=== PATIENT | female | born 1995 | race American Indian/Alaskan Native ===

== ENCOUNTER 2022-10-20 14:24 | Emergency (ER) | payer MEDICAID, SELFPAY ==
[2022-10-20 14:29] VITALS: BP 129/76; PULSE 74; RESP 16; TEMP 37.2; O2SAT 99; BMI 18.8
--- NOTE | 2022-10-20 14:37 | ED.DENTAL ---
HPI - Dental/Oral General Chief complaint: Dental/Oral Stated complaint: Ear Infection and Tooth Abscess Time Seen by Provider: 10/20/22 14:28 Source: patient Mode of arrival: Ambulatory History of Present Illness HPI Narrative: 27-year-old female smoker with history of right lower dental problems for many months presents with a chief complaint of some swelling of her right lower jaw that has been present for quite some time and right ear pain. She states that she has had no runny nose or fever. She denies any sore throat or cough. She denies nausea, vomiting or diarrhea. She has an extensive list of severe allergies to nearly all antibiotics. She states that she went to [facility] at the [facility] 7 days ago and was diagnosed with a right ear infection and was placed on clindamycin and is taking her last dose. She is looking for a dentist to help with her ongoing dental infections. She denies any drainage. Related Data Home Medications Medication Instructions Recorded Confirmed vitamin-ferrous fumarate 1 cap PO HS ##0 03/18/17 65 mg iron-folic acid 1 mg capsule (Mynatal) acetaminophen 300 mg-codeine 30 mg 1 tab PO ##0 05/06/17 tablet cephalexin 500 mg capsule (Keflex) 500 mg PO ##0 05/06/17 Previous Rx's Medication Instructions Recorded ondansetron 4 mg disintegrating 4 mg sublingual Q6HP PRN ##10 05/01/17 tablet (Zofran ODT) hydrocodone 5 mg-acetaminophen 300 1 tab PO Q6HP PRN #20 tabs 05/06/17 mg tablet (Vicodin) hydrocodone 5 mg-acetaminophen 325 1 tab PO Q4-6H PRN pain #10 tabs 10/20/22 mg tablet levofloxacin 750 mg tablet 750 mg PO DAILY 7 days #7 tabs 10/20/22 metronidazole 500 mg tablet 500 mg PO Q8H 7 days #21 tabs 10/20/22 Allergies Allergy/AdvReac Type Severity Reaction Status Date / Time codeine [CODEINE] Allergy Unknown Unverified 09/03/17 12:36 ibuprofen [IBUPROFEN] Allergy Unknown Unverified 09/03/17 12:36 Penicillins [PENICILLINS] Allergy Unknown Unverified 09/03/17 12:36 Sulfa (Sulfonamide Allergy Unknown Unverified 09/03/17 12:36 Antibiotics) [SULFA (SULFONAMIDE ANTIBIOTICS)] ALL ALLERGY MEDICINES Allergy Unknown Uncoded 09/03/17 12:36 ALL COLD MEDICATIONS Allergy Unknown Uncoded 09/03/17 12:36 sleeping pills Allergy Unknown Uncoded 09/03/17 12:36 Review of Systems Review of Systems Narrative: GENERAL: Denies chills, fatigue, malaise, fever, sweats. HEENT: see HPI RESPIRATORY: Denies dyspnea, cough, wheezing, hemoptysis, sputum. CARDIOVASCULAR: Denies chest pain, palpitations, orthopnea, edema, GASTROINTESTINAL: Denies nausea, vomiting, abdominal pain, diarrhea, constipation, melena. : Denies dysuria, frequency, incontinence, hematuria, urinary retention. MUSCULOSKELETAL: denies weakness, joint pain, or bony pain SKIN: Denies rash, skin lesions, or other NEUROLOGIC: Denies weakness, headache, numbness, change in speech, confusion, seizures, incoordination. PSYCHIATRIC: No concerning psychosocial issues. 12 point review of systems is negative except for those stated above Patient History Social History Smoking Status: Current every day smoker Smoking Status: Current every day smoker Substance Use Type: does not use Exam Narrative Exam Narrative: GENERAL: [27] year old patient appears stated age. Well-developed patient, in mild distress. HEAD: Atraumatic. Normocephalic. EYES: Pupils equal round and reactive. Extraocular motions intact. No scleral icterus. No injection or drainage. ENT: Nose without bleeding, purulent drainage. Throat without erythema, tonsillar hypertrophy or exudate. Airway patent. right tympanic membrane is partially obscured by cerumen but visual portion is only slightly erythematous, no bulging or opacification. odontogenic exam nose widespread poor dentition, right lower molar and premolar dental caries. minimal swelling, no fluctuance or erythema, no obviously drainable abscess NECK: Trachea midline. Non tender CARDIOVASCULAR: Regular rate and rhythm without murmurs, gallops, or rubs. RESPIRATORY: Clear to auscultation. Breath sounds equal bilaterally. No wheezes, rales, or rhonchi. GASTROINTESTINAL: Abdomen soft, non-tender, nondistended. EXTREMITIES: No edema or joint tenderness. BACK: Nontender without deformity or crepitance. No flank tenderness. NEURO: AOx3. SKIN: No rash or erythema of visible areas Initial Vital Signs Initial Vital Signs: Vital Signs Temperature 98.9 F 10/20/22 14:29 Pulse Rate 74 10/20/22 14:29 Respiratory Rate 16 10/20/22 14:29 Blood Pressure 129/76 10/20/22 14:29 Pulse Oximetry 99 10/20/22 14:29 Oxygen Delivery Method Room Air 10/20/22 14:29 Course Vital Signs Vital signs: Vital Signs - 8 hr 10/20/22 14:29 Temperature 98.9 F Pulse Rate 74 Respiratory Rate 16 Blood Pressure 129/76 Pulse Oximetry 99 Oxygen Delivery Method Room Air MDM - Dental/Oral MDM Narrative Medical decision making narrative: [27] year old patient presents with right ear pain, right lower jaw pain, swelling and known dental infection Multiple etiologies for patient's symptoms considered including, but not limited to: [ dental abscess versus dental caries versus otitis media versus otitis externa versus other] Prior Charts reviewed in our EMR Primary Historian: patient patient with right ear pain and right lower jaw dental pain and swelling presents with chief complaint of ongoing symptoms despite being on clindamycin for the past week. She is nontoxic, no signs of sepsis, no difficulty breathing and guarding her airway without difficulty. Her right tympanic membrane is slightly erythematous but not bulging and not opacified, it is unclear if there is still ongoing infection at this location. There is no obviously drainable abscess adjacent to her painful teeth. Given her significant allergies and lack of improvement on clindamycin we discussed other options and in the end I sent prescriptions for Levaquin and Flagyl as well as a few hydrocodone to her pharmacy of choice. We discussed return precautions including systemic complaints such as shaking chills, persistent vomiting, difficulty swallowing or breathing and other concerning symptoms Findings and discharge diagnosis discussed with patient/family followed by verbalization of understanding Return precautions discussed with patient/family whom verbalize understanding of diagnosis and plan Discharge Plan Departure Patient Disposition: Home Clinical Impression: Acute otalgia, Abscess, dental Instructions: Tooth Abscess Activity Restrictions/Additional Instructions: *You have been diagnosed with [ dental infection and ear pain ] *What to do: *Please continue to take your regular medications as directed. [x ] New medication prescriptions sent to your pharmacy: [ [facility]] [ ] New medication written as a paper prescription [ ] No new medications given *Please follow up with your primary care provider in 2-3 days, call for an appointment. Let them know you were seen in the Emergency Department and that we ask that you be seen in follow up. We will electronically transmit a record of today's note if your PCP is in our system *If you do not have a primary care provider please contact the [facility] Resource line at [phone]. They will ask some questions about your medical history and help get you set up with a doctor in the community. *Return to Emergency Department if you should have any new, worsening or concerning symptoms, such as [fever greater than 101 F, shaking chills, worsening pain, persistent vomiting or other bothersome symptoms] You have been prescribed a short course of narcotic medications. These are potentially dangerous and addictive medications that should be used carefully. While on these medications you cannot drive or operate heavy machinery. Additionally, you cannot sign legal documents or perform any duties such as this. Many people get constipated on narcotic medications so it would be advisable to discuss stool softeners with the pharmacist when you pickling solution maker your prescription. Please understand that we cannot provide further refills of narcotics or controlled substances through the ED and your pain management will need to be through your Primary Care Provider Prescriptions: New levofloxacin 750 mg tablet 750 mg PO DAILY 7 Days Qty: 7 0RF metronidazole 500 mg tablet 500 mg PO Q8H 7 Days Qty: 21 0RF hydrocodone-acetaminophen 5-325 mg tablet 1 tab PO Q4-6H PRN (Reason: pain) Qty: 10 0RF No Action vit-iron fum-folic ac [Mynatal] 1 EACH capsule 1 cap PO HS Qty: 0 ondansetron [Zofran ODT] 4 MG tablet,disintegrating 4 mg Sublingual Q6HP PRNQty: 10 0RF acetaminophen-codeine 30 MG/300 MG tablet 1 tab PO Qty: 0 cephalexin [Keflex] 500 MG capsule 500 mg PO Qty: 0 hydrocodone-acetaminophen [Vicodin] 5 MG/300 MG tablet 1 tab PO Q6HP PRNQty: 20 0RF Referrals: Arlen Chapin, IRVIN, EQUIPMENT WASHER, SHIPPING AND RECEIVING CLERK-C [Family Provider] - Stand Alone Forms: Patient Portal/API
== END 2022-10-20 15:02 | disposition home or self-care (01) ==
PROVIDERS: Emergency Provider Emergency Medicine; Family Provider Nurse Practitioner
DX: K04.7 Periapical abscess without sinus (principal); H92.01 Otalgia, right ear
CPT/HCPCS: 99281

== ENCOUNTER 2022-11-01 03:54 | Emergency (ER) | payer MEDICAID, SELFPAY ==
[2022-11-01 04:01] VITALS: BP 107/59; PULSE 73; RESP 16; TEMP 36.2; O2SAT 100; BMI 20.4
--- NOTE | 2022-11-01 04:03 | ED_ITS ---
HPI - Abdominal Pain General Chief Complaint: Abdominal Pain Stated Complaint: abd pain Time Seen by Provider: 11/01/22 04:00 Source: patient Mode of arrival: Ambulatory Limitations: no limitations History of Present Illness HPI narrative: This is a 27-year-old female with no reported medical issues, patient presents with complaint of right-sided abdominal for the past few days. Patient states it is significantly worse when she eats and then will sort of improve. She states started in the front there is a little bit in the flank. She is noted a little bit of pressure in the lower abdomen as well. She denies fevers has felt chilled. She is had decreased appetite. She is had nausea. She is not had any vomiting. She denies diarrhea, constipation black or bloody stool. Today's dysuria, urgency or frequency. Denies vaginal bleeding or discharge. States she finished her menses about a week ago. Patient states she is had prior ovarian cyst pain feels different than that does. Patient states no daily medications. She did try hydrocodone, Tylenol and codeine earlier tonight without any improvement. Denies any surgeries besides a dental extraction. Notes she was on antibiotics for recently for a dental infection which resulted in the extraction. Does use tobacco, occasional alcohol, denies illicit. Related Data Home Medications Medication Instructions Recorded Confirmed vitamin-ferrous fumarate 1 cap PO HS ##0 03/18/17 65 mg iron-folic acid 1 mg capsule (Mynatal) acetaminophen 300 mg-codeine 30 mg 1 tab PO ##0 05/06/17 tablet cephalexin 500 mg capsule (Keflex) 500 mg PO ##0 05/06/17 Previous Rx's Medication Instructions Recorded ondansetron 4 mg disintegrating 4 mg sublingual Q6HP PRN ##10 05/01/17 tablet (Zofran ODT) hydrocodone 5 mg-acetaminophen 300 1 tab PO Q6HP PRN #20 tabs 05/06/17 mg tablet (Vicodin) hydrocodone 5 mg-acetaminophen 325 1 tab PO Q4-6H PRN pain #10 tabs 10/23/22 mg tablet ciprofloxacin HCl 500 mg tablet 500 mg PO BID #20 tabs 11/01/22 hydrocodone 5 mg-acetaminophen 325 1 tab PO Q6H PRN pain #20 tabs 11/01/22 mg tablet Allergies Allergy/AdvReac Type Severity Reaction Status Date / Time codeine [CODEINE] Allergy Unknown Unverified 09/03/17 12:36 ibuprofen [IBUPROFEN] Allergy Unknown Unverified 09/03/17 12:36 Penicillins [PENICILLINS] Allergy Unknown Unverified 09/03/17 12:36 Sulfa (Sulfonamide Allergy Unknown Unverified 09/03/17 12:36 Antibiotics) [SULFA (SULFONAMIDE ANTIBIOTICS)] ALL ALLERGY MEDICINES Allergy Unknown Uncoded 09/03/17 12:36 ALL COLD MEDICATIONS Allergy Unknown Uncoded 09/03/17 12:36 sleeping pills Allergy Unknown Uncoded 09/03/17 12:36 Review of Systems Review of Systems ROS Unobtainable: All systems reviewed & are unremarkable except as noted in HPI and below Patient History Social History Smoking Status: Current every day smoker Smoking Status: Current every day smoker Substance Use Type: does not use Exam Narrative Exam Narrative: GENERAL: Alert and oriented x three, thin female in [id number] distress. HEENT: Head normocephalic, atraumatic, EOMI, pupils reactive, face symmetric, moist mucous membranes NECK: Supple, full range of motion CARDIOVASCULAR: Regular rate and rhythm without murmurs, rubs or gallops. RESPIRATORY: Breath sounds equal bilaterally, no wheezes rales or rhonchi. ABDOMEN: Soft, right-sided tenderness particularly in the right upper quadrant but mildly lower. Normoactive bowel sounds all 4 quadrants. No guarding or rebound, rigidity, no mass, nondistended. : No CVA tenderness EXTREMITIES: Normal range of motion, no clubbing or edema. Neurovascularly intact NEUROLOGICAL: Cranial nerves II through XII grossly intact. Moving all extremities. Normal gait. SKIN: Warm, dry, no petechiae, no rashes or lesions. Initial Vital Signs Initial Vital Signs: Vital Signs Temperature 97.1 F L 11/01/22 04:01 Pulse Rate 73 11/01/22 04:01 Respiratory Rate 16 11/01/22 04:01 Blood Pressure 107/59 L 11/01/22 04:01 Pulse Oximetry 100 11/01/22 04:01 Oxygen Delivery Method Room Air 11/01/22 04:01 Course Orders Ordered: Discontinued Medications Ketorolac Tromethamine (Ketorolac 30 Mg/Ml Vial) 15 mg IV NOW ONE Stop: 11/01/22 04:19 Last Admin: 11/01/22 04:30 Dose: 15 mg Documented By: RODNEY Morphine Sulfate (Morphine 4 Mg/Ml Inj) 4 mg IV NOW ONE Stop: 11/01/22 05:50 Last Admin: 11/01/22 05:52 Dose: 4 mg Documented By: RODNEY Ondansetron HCl (Ondansetron 4 Mg/2 Ml Inj) 4 mg IV NOW ONE Stop: 11/01/22 04:19 Last Admin: 11/01/22 04:30 Dose: 4 mg Documented By: RODNEY Vital Signs Vital signs: Vital Signs - 8 hr 11/01/22 04:01 Temperature 97.1 F L Pulse Rate 73 Respiratory Rate 16 Blood Pressure 107/59 L Pulse Oximetry 100 Oxygen Delivery Method Room Air MDM - Abdominal Pain Lab Data 11/01/22 04:25 11/01/22 04:25 Labs: Lab Results 11/01/22 11/01/22 11/01/22 Range/Units 04:25 04:25 04:30 WBC 7.1 (4.5-11.0) X10^3/uL RBC 4.37 (4.0-5.2) X10^6/uL Hgb 13.5 (12.0-16.0) g/dL Hct 38.4 (36-46) % MCV 87.9 (80-100) fL MCH 30.8 (26-34) PG MCHC 35.0 (30-36) % RDW 13.1 (11.6-14.8) % Plt Count 229 (150-400) X10^3/uL Neut % (Auto) 73.5 (50-75) % Lymph % (Auto) 15.4 L (25-40) % [place] % (Auto) 8.4 (3-14) % Eos % (Auto) 1.4 L (2-4) % Baso % (Auto) 1.3 (0-2) % Neut # (Auto) 5300 (1913-6304) /uL Lymph # (Auto) 1100 (1604-7757) /uL [place] # (Auto) 600 (0-900) /uL Eos # (Auto) 100 (0-450) /uL Baso # (Auto) 100 (0-100) /uL Sodium 137 (137-145) mmol/L Potassium 3.3 L (3.4-5.1) mmol/L Chloride 104 (98-107) mmol/L Carbon Dioxide 27 (22-32) mmol/L BUN 16 (7-17) mg/dL Creatinine 0.58 (0.52-1.04) mg/dL Estimated GFR > 60 (>60) mL/min BUN/Creatinine Ratio 27.6 H (6-22) Glucose 149 H (70-100) mg/dL Calcium 8.9 (8.4-10.2) mg/dL Total Bilirubin 0.5 (0.2-1.3) mg/dL AST 19 (14-36) IU/L ALT 15 (<35) IU/L Alkaline Phosphatase 45 (38-126) U/L Total Protein 7.1 (6.3-8.2) g/dL Albumin 4.4 (3.5-5.0) g/dL Globulin 2.7 (1.7-4.1) g/dL Albumin/Globulin Ratio 1.6 (1.0-2.8) Lipase 39 (23-300) U/L Urine Color Yellow Urine Appearance Clear Urine pH 5.5 (4.5-8.0) Ur Specific Delta 1.025 (1.000-1.035) Urine Protein Negative (Negative) Urine Glucose (UA) Negative (Negative) g/dL Urine Ketones 1+ H (NEGATIVE) Urine Occult Blood Negative (Negative) Urine Nitrate Negative (Negative) Urine Bilirubin Negative (NEGATIVE) Urine Urobilinogen 0.2 (0.2) E.U./dL Ur Leukocyte Esterase Trace H (NEGATIVE) Urine RBC 0-1/hpf (0-5/HPF) Urine WBC 0-1/hpf (0-5/HPF) Ur Squamous Epith Cells 0-1 /hpf (0-5/HPF) Urine Bacteria None seen (None) Hyaline Casts 0-1/lpf (None) Urine Mucus 1+ H (Negative) Ur Culture Indicated? Specimen cultured Point of care testing: Point of Care Testing Test Results Negative Urine Dip Bedside Urine Glucose Negative Bedside Urine Bilirubin - Negative Bedside Urine Ketone + 15 Urine Specific Delta 1.030 Bedside Urine Occult Blood - Negative Bedside Urine pH 6.0 Bedside Urine Protein +/- 15 Bedside Urine Leukocytes +/- 15 Esterase Imaging Data US - abdomen: Radiologist's Impression: appendix not visualized. There is no acute changes to right upper quadrant. Right kidney no acute change. CT scan - abdomen/pelvis: Radiologist's Impression: Lung bases are clear. Liver, gallbladder, pancreas, spleen, adrenal glands and kidneys are unremarkable. New line uterus and urinary bladder are unremarkable. No convincing indications of appendicitis. Moderate retained fecal material throughout the colon. Few mildly distended loops of small bowel in the left mid abdomen. No retroperitoneal mass or lymphadenopathy. Aorta normal in caliber no acute or aggressive appearing osseous lesion. Findings maybe associated with post patient's/adynamic ileus. Mild enteritis may also be considered. MDM Narrative Medical decision making narrative: This is a 27-year-old female with 5 days of abdominal pain that has been persistent progressive she is particularly tender in the right upper quadrant. No fevers or chills decreased appetite, no vomiting. No other GI or urinary symptoms. Patient notes she is had an ovarian cyst this is feels different and her tenderness is much higher on examination. Labs show no white count, potassium 3.3 normal renal function, glucose 149 with normal LFTs and lipase. Point of care urine is negative for , positive leukocyte Estrace, no nitrites. Micro shows leukocyte esterase, no nitrates, no bacteria with some culture. Ultrasound limited right upper quadrant is negative appendix was not visualized normal right kidney. Discussed with patient, patient was quite tender more so in right upper quadrant. Possibility for pyelonephritis but patient noted that pain was much worse when she eats. This seems less likely more likely colitis, appendicitis still on differential and was not visualized on imaging. Patient still quite uncomfortable. We will give additional dose of pain medication and after discussion risks versus benefits CT abdomen pelvis. CT abdomen pelvis does not show any clear acute changes, appendicitis, kidney stone, colitis or other clear cause of pain. Patient's urine does have leukocyte esterase I would treat patient for potential pyelonephritis with her right upper/flank pain. Patient is much more tender RUQ but does have some RLQ tenderness as well. Discussed with patient other potential causes she states not sexually active currently. We discussed pelvic exam for PID although makes right upper quadrant pain less likely, patient elects to defers. Discussed other potential causes, return precautions need for follow-up. Discharge Plan Departure Patient Disposition: Home Clinical Impression: Pyelonephritis Instructions: DI for Kidney Infection Activity Restrictions/Additional Instructions: I suspect your pain is secondary to kidney infection but please follow up for additional workup if symptoms are not improving. A urine culture is pending if it shows resistance you would be contacted to change antibiotics. Please take pain medication as prescribed. This medication can make you sleepy do not drive, perform hazardous activities or make any major decisions while taking it. This medication will make you constipated please take a stool softener once to twice daily until stools are soft and regular. Take antibiotics until completely gone. Prescription sent to [facility] [place] Please return for fevers, new or worsening abdominal back or flank pain, persistent vomiting, black or bloody stools, lightheadedness or passing out or other new or concerning symptoms. Prescriptions: New ciprofloxacin HCl 500 mg tablet 500 mg PO BID Qty: 20 0RF hydrocodone-acetaminophen 5-325 mg tablet 1 tab PO Q6H PRN (Reason: pain) Qty: 20 0RF No Action vit-iron fum-folic ac [Mynatal] 1 EACH capsule 1 cap PO HS Qty: 0 ondansetron [Zofran ODT] 4 MG tablet,disintegrating 4 mg Sublingual Q6HP PRNQty: 10 0RF acetaminophen-codeine 30 MG/300 MG tablet 1 tab PO Qty: 0 cephalexin [Keflex] 500 MG capsule 500 mg PO Qty: 0 hydrocodone-acetaminophen [Vicodin] 5 MG/300 MG tablet 1 tab PO Q6HP PRNQty: 20 0RF hydrocodone-acetaminophen 5-325 mg tablet 1 tab PO Q4-6H PRN (Reason: pain) Qty: 10 0RF Referrals: Miscellaneous,Doctor, MD [Primary Care Provider] - Stand Alone Forms: Patient Portal/API
--- NOTE | 2022-11-01 04:18 | DI.US.S_ITS ---
PROCEDURE: US ABDOMEN LIMITED INDICATIONS: RUQ/RLQ pain, greatest RUQ TECHNIQUE: Real-time scanning was performed of the abdominal and retroperitoneal organs, with image documentation. COMPARISON: US, RENAL COMPLETE, 05/13/2017, 14:09. [facility], CT, CT ABDOMEN PELVIS W CON, 11/01/2022, 5:57. FINDINGS: Liver: Liver is normal in size and homogeneous in echotexture. Gallbladder: No gallstones. No gallbladder wall thickening, pericholecystic fluid or sonographic Fisher's sign. Biliary ducts: Intrahepatic bile ducts are non-dilated. Extrahepatic bile duct caliber measures 4.5 mm (Normal is 6-7 mm). Pancreas: Vivualized portions of the pancreas are sonographically normal. Right Kidney: Right kidney is normal in size measuring 11.1 cm long. No hydronephrosis or nephrolithiasis. No solid masses. Miscellaneous: Appendix is not visualized. No secondary signs for acute appendicitis. No free abdominal fluid. IMPRESSION: Normal limited abdominal ultrasound exam. No significant discrepancy with the slot shift manager radiology preliminary report. Dictated by: Maxx Talley M.D. on 11/01/2022 at 8:48 Approved by: Maxx Talley M.D. on 11/01/2022 at 8:51
[2022-11-01] MEDS: KETOROLAC 30 MG/ML VIAL 15 MG IV (04:30)
[2022-11-01] MEDS: ONDANSETRON 4 MG/2 ML INJ IV (04:30)
[2022-11-01 04:35] LABS: Add Manual Diff / Slide Review NO; Basophils Absolute Auto 100 /uL (0-100); Basophils Percent Auto 1.3 % (0-2); Eosinophils Absolute Auto 100 /uL (0-450); Eosinophils Percent Auto 1.4 % (2-4); Hematocrit 38.4 % (36-46); Hemoglobin 13.5 g/dL (12.0-16.0); Lymphocytes Absolute Auto 1100 /uL (1100-4500); Lymphocytes Percent Auto 15.4 % (25-40); Mean Corpuscular Hemoglobin 30.8 PG (26-34); Mean Corpuscular Volume 87.9 fL (80-100); Monocytes Absolute Auto 600 /uL (0-900); Monocytes Percent Auto 8.4 % (3-14); Neutrophils Absolute Auto 5300 /uL (1500-7000); Neutrophils Percent Auto 73.5 % (50-75); Platelet Count 229 X10^3/uL (150-400); Red Blood Cell Count 4.37 X10^6/uL (4.0-5.2); Red Cell Distribution Width 13.1 % (11.6-14.8); White Blood Cell Count 7.1 X10^3/uL (4.5-11.0)
[2022-11-01 04:45] LABS: Alanine Aminotransferase 15 IU/L (<35); Albumin 4.4 g/dL (3.5-5.0); Albumin Globulin Ratio 1.6 (1.0-2.8); Alkaline Phosphatase 45 U/L (38-126); Aspartate Aminotransferase 19 IU/L (14-36); BUN Creatinine Ratio 27.6 (6-22); Bilirubin Total 0.5 mg/dL (0.2-1.3); Blood Urea Nitrogen 16 mg/dL (7-17); Calcium 8.9 mg/dL (8.4-10.2); Carbon Dioxide 27 mmol/L (22-32); Chloride 104 mmol/L (98-107); Estimated Glomerular Filt Rate > 60 mL/min (>60); Globulin 2.7 g/dL (1.7-4.1); Glucose 149 mg/dL (70-100); HEMOLYSIS < 15 (0-50); Lipase 39 U/L (23-300); Potassium 3.3 mmol/L (3.4-5.1); Sodium 137 mmol/L (137-145); Total Protein 7.1 g/dL (6.3-8.2)
[2022-11-01 05:07] LABS: Appearance Urine UA CLEAR; Bilirubin Urine UA NEGATIVE (NEGATIVE); Color Urine UA YELLOW; Glucose Urine UA NEGATIVE (Negative); Ketones Urine UA 1+ (NEGATIVE); Leukocyte Esterase Urine UA TRACE (NEGATIVE); Nitrite Urine UA NEGATIVE (Negative); Occult Blood Urine UA NEGATIVE (Negative); Protein Urine UA NEGATIVE (Negative); Specific Gravity Urine UA 1.025 (1.000-1.035); Urobilinogen Urine UA 0.2 E.U./dL (0.2)
[2022-11-01 05:09] LABS: Bacteria Urine None Seen; Hyaline Casts Urine 0-1/LPF; Mucus Urine 1+ (Negative); RBC Urine 0-1/HPF (0-5/HPF); Squamous Epithelial Cell Urine 0-1 /HPF (0-5/HPF); WBC Urine 0-1/HPF (0-5/HPF); pH Urine UA 5.5 (4.5-8.0)
[2022-11-01 05:10] LABS: Culture Indicated Urine Specimen Cultured
--- NOTE | 2022-11-01 05:48 | DI.CT.S_ITS ---
PROCEDURE: CT ABDOMEN PELVIS W CON INDICATIONS: right abd pain x 5days TECHNIQUE: After the administration of IV contrast, axial sections were acquired from the lung bases to the pubic symphysis. Coronal and sagittal reformats were performed. For radiation dose reduction, the following was used: automated exposure control, adjustment of mA and/or kV according to patient size. COMPARISON: [facility], CT, ABDOMEN/PELVIS WITHOUT CONTRAS, 10/02/2016, 2:32. FINDINGS: Image quality: Excellent. Lung bases: Unremarkable. Heart: No significant findings. ABDOMEN: Liver: Unremarkable. Gallbladder: Unremarkable. Biliary ducts: Unremarkable. Pancreas: Unremarkable. Spleen: Unremarkable. Adrenal Glands: Unremarkable. Kidneys and Ureters: Unremarkable. Stomach and Bowel: Fluid-filled small bowel loops demonstrate prominent caliber measuring up to 2.7 cm in diameter. There are a few air-fluid levels in small intestine. No transitional point is identified. A large amount of stool in colon. No findings to suggest acute appendicitis. Peritoneum: No abnormal intraperitoneal fluid. No free air. Ventral Wall: No hernia. Abdominal Nodes: No retroperitoneal or mesenteric adenopathy by size criteria. Vessels: Aorta and inferior vena cava are normal in size. PELVIS: Pelvic Organs: Unremarkable. Bladder: Unremarkable. Pelvic Nodes: No enlarged lymph nodes. Miscellaneous: No inguinal hernias are seen. Bones: Unremarkable. IMPRESSION: 1. Fluid-filled small intestine demonstrates prominent caliber. The finding is nonspecific and may be secondary to gastroenteritis or ileus. No findings to suggest small bowel obstruction. 2. A large amount of stool in colon. 3. No findings to suggest acute appendicitis. No significant discrepancy with the restaurant shift leader radiology preliminary report. Dictated by: Maxx Talley M.D. on 11/01/2022 at 8:00 Approved by: Maxx Talley M.D. on 11/01/2022 at 8:05
[2022-11-01] MEDS: MORPHINE 4 MG/ML INJ IV (05:52)
[2022-11-01 06:58] VITALS: BP 103/57; PULSE 71; RESP 18; TEMP 36.8; O2SAT 100
== END 2022-11-01 06:59 | disposition home or self-care (01) ==
PROVIDERS: Emergency Provider Emergency Medicine; Family Provider Nurse Practitioner
DX: N12 Tubulo-interstitial nephritis, not specified as acute or chronic (principal); R10.9 Unspecified abdominal pain
CPT/HCPCS: 36415; 74177; 76705; 80053; 81001; 81003; 81025; 83690; 85025; 87086; 96374; 96375; 99284; J1885; J2270; J2405; Q9967

== ENCOUNTER 2023-09-23 10:21 | Emergency (ER) | payer OTHER, SELFPAY ==
[2023-09-23 10:24] VITALS: BP 105/65; PULSE 92; RESP 15; TEMP 37; O2SAT 100; BMI 18.6
--- NOTE | 2023-09-23 11:50 | ED.URI ---
HPI - URI/Sore Throat <Jaci Santos PA-C - Last Filed: 09/23/23 14:01> General Chief Complaint: Upper Respiratory Symptoms Stated Complaint: ear infection getting worse Time Seen by Provider: 09/23/23 11:26 Source: patient Mode of arrival: Ambulatory History of Present Illness HPI Narrative: 27-year-old female with no reported past medical history presents to the ED with 4 days of ear pain. Patient states that her symptoms started with right-sided ear pain and muffled hearing 4 days ago, the following day she experienced pain in the left ear as well. Patient was seen at [facility] twice for the same complaint, diagnosed with otitis externa and prescribed ofloxacin eardrops. Patient states that she has been using the eardrops for the last 3 days with no improvement. Patient also states that she developed a fever 2 days ago of 101? F. Patient is complaining of a cough, rhinorrhea, sore throat, nausea. Denies vomiting, chest pain, shortness of breath, dysuria, abdominal pain, lightheadedness, dizziness, syncope. Related Data Home Medications Medication Instructions Recorded Confirmed vitamin-ferrous fumarate 1 cap PO HS ##0 03/18/17 65 mg iron-folic acid 1 mg capsule (Mynatal) acetaminophen 300 mg-codeine 30 mg 1 tab PO ##0 05/06/17 tablet cephalexin 500 mg capsule (Keflex) 500 mg PO ##0 05/06/17 Previous Rx's Medication Instructions Recorded ondansetron 4 mg disintegrating 4 mg sublingual Q6HP PRN ##10 05/01/17 tablet (Zofran ODT) hydrocodone 5 mg-acetaminophen 300 1 tab PO Q6HP PRN #20 tabs 05/06/17 mg tablet (Vicodin) hydrocodone 5 mg-acetaminophen 325 1 tab PO Q4-6H PRN pain #10 tabs 10/23/22 mg tablet ciprofloxacin HCl 500 mg tablet 500 mg PO BID #20 tabs 11/01/22 hydrocodone 5 mg-acetaminophen 325 1 tab PO Q6H PRN pain #20 tabs 11/01/22 mg tablet Allergies Allergy/AdvReac Type Severity Reaction Status Date / Time codeine [CODEINE] Allergy Unknown Verified 09/23/23 10:24 Penicillins [PENICILLINS] Allergy Unknown Verified 09/23/23 10:24 Sulfa (Sulfonamide Allergy Unknown Verified 09/23/23 10:24 Antibiotics) [SULFA (SULFONAMIDE ANTIBIOTICS)] oxycodone Allergy Verified 09/23/23 10:24 ALL ALLERGY MEDICINES Allergy Unknown Uncoded 09/03/17 12:36 ALL COLD MEDICATIONS Allergy Unknown Uncoded 09/03/17 12:36 sleeping pills Allergy Unknown Uncoded 09/03/17 12:36 Review of Systems <Jaci Santos PA-C - Last Filed: 09/23/23 14:01> Constitutional Constitutional: Denies chills, Denies fatigue, Reports fever(s), Denies frequent falls, Denies lethargy and Denies weakness Eyes Eyes: Denies change in vision, Denies eye discharge, Denies irritation and Denies loss of vision ENT Ears, Nose, Mouth, and Throat: Denies change in voice, Denies dizziness, Reports otalgia, Reports hearing loss, Reports nasal discharge, Denies neck pain, Reports sore throat and Denies throat swelling Cardiovascular Cardiovascular: Denies chest pain, Denies irregular heart rhythm, Denies lightheadedness, Denies palpitations, Denies dyspnea, Denies dyspnea on exertion and Denies orthopnea Respiratory Respiratory: Reports cough, Denies dyspnea, Denies dyspnea on exertion and Denies wheezing Gastrointestinal Gastrointestinal: Denies abdominal pain, Denies change in bowel habits, Denies diarrhea, Denies nausea and Denies vomiting Musculoskeletal Musculoskeletal: Denies neck pain and Denies numbness Integumentary/Breasts Skin/Breast: Denies pruritus, Denies erythema, Denies rash and Denies wounds Neurologic Neurologic: Denies behavioral changes, Denies confusion, Denies dizziness, Denies frequent falls, Denies loss of vision, Denies numbness and Denies weakness Psychiatric Psychiatric: Denies anxiety, Denies behavioral changes, Denies confusion, Denies depression, Denies homicidal ideation and Denies suicidal ideation Endocrine Endocrine: Denies fatigue, Denies flushing and Denies palpitations Hematologic/Lymphatic Hematologic/Lymphatic: Denies easy bruising Allergic/Immunologic Allergic/Immunologic: Denies urticaria, Denies throat swelling and Denies wheezing Patient History <Jaci Santos PA-C - Last Filed: 09/23/23 14:01> Social History Smoking Status: Current every day smoker Smoking Status: Current every day smoker tobacco type: vaping alcohol intake frequency: holidays/special occasions only Substance Use Type: does not use Exam <Jaci Santos PA-C - Last Filed: 09/23/23 14:01> Narrative Exam Narrative: Const General:?cooperative, healthy appearing and comfortable [facility] Head:?normal to inspection Ears:?hearing grossly normal bilaterally; left ear canal appears erythematous and scaly; left tympanum is normal; right tympanum not visualized due to complete cerumen impaction Nose:?external nose normal Face and sinus:?normal facial exam and sinuses nontender Mouth:?oral mucosae normal Throat:?posterior oropharynx normal Eyes General:?appearance normal, both eyes and all related structures Neck Neck:?normal visual inspection and no lymphadenopathy noted Resp Effort & Inspection:?normal respiratory effort Auscultation:?clear to auscultation bilaterally Cardio Rate:?regular rate Rhythm:?regular rhythm Neuro General:?patient alert, patient awake and patient oriented x3 Initial Vital Signs Initial Vital Signs: Vital Signs Temperature 98.6 F 09/23/23 10:24 Pulse Rate 92 H 09/23/23 10:24 Respiratory Rate 15 09/23/23 10:24 Blood Pressure 105/65 09/23/23 10:24 Pulse Oximetry 100 09/23/23 10:24 Oxygen Delivery Method Room Air 09/23/23 10:24 <Susanna Powers DO - Last Filed: 09/23/23 18:44> Initial Vital Signs Initial Vital Signs: Vital Signs Temperature 98.6 F 09/23/23 10:24 Pulse Rate 92 H 09/23/23 10:24 Respiratory Rate 15 09/23/23 10:24 Blood Pressure 105/65 09/23/23 10:24 Pulse Oximetry 100 09/23/23 10:24 Oxygen Delivery Method Room Air 09/23/23 10:24 Course <Jaci Santos PA-C - Last Filed: 09/23/23 14:01> Orders Ordered: ED Orders 09/23/23 12:37 Respiratory Panel (Film Array) Stat Discontinued Medications Acetaminophen (Acetaminophen 325 Mg Tablet) 975 mg PO NOW ONE Stop: 09/23/23 11:47 Last Admin: 09/23/23 11:53 Dose: Not Given Documented By: KINA Carbamide Peroxide (Carbamide Peroxide Otic 15 Ml) 4 drops EAR-RIGHT NOW ONE Stop: 09/23/23 11:47 Last Admin: 09/23/23 11:58 Dose: 4 drops Documented By: KINA Ketorolac Tromethamine (Ketorolac 30 Mg/Ml Vial) 30 mg IM NOW ONE Stop: 09/23/23 11:47 Last Admin: 09/23/23 11:53 Dose: 30 mg Documented By: KINA Ondansetron HCl (Ondansetron 4 Mg Odt) 4 mg SL NOW ONE Stop: 09/23/23 12:11 Last Admin: 09/23/23 12:41 Dose: 4 mg Documented By: KINA Vital Signs Vital signs: Vital Signs - 8 hr 09/23/23 10:24 Temperature 98.6 F Pulse Rate 92 H Respiratory Rate 15 Blood Pressure 105/65 Pulse Oximetry 100 Oxygen Delivery Method Room Air <Susanna Powers DO - Last Filed: 09/23/23 18:44> Orders Ordered: ED Orders 09/23/23 12:37 Respiratory Panel (Film Array) Stat Discontinued Medications Acetaminophen (Acetaminophen 325 Mg Tablet) 975 mg PO NOW ONE Stop: 09/23/23 11:47 Last Admin: 09/23/23 11:53 Dose: Not Given Documented By: KINA Carbamide Peroxide (Carbamide Peroxide Otic 15 Ml) 4 drops EAR-RIGHT NOW ONE Stop: 09/23/23 11:47 Last Admin: 09/23/23 11:58 Dose: 4 drops Documented By: KINA Ketorolac Tromethamine (Ketorolac 30 Mg/Ml Vial) 30 mg IM NOW ONE Stop: 09/23/23 11:47 Last Admin: 09/23/23 11:53 Dose: 30 mg Documented By: KINA Ondansetron HCl (Ondansetron 4 Mg Odt) 4 mg SL NOW ONE Stop: 09/23/23 12:11 Last Admin: 09/23/23 12:41 Dose: 4 mg Documented By: KINA Vital Signs Vital signs: Vital Signs - 8 hr 09/23/23 10:24 Temperature 98.6 F Pulse Rate 92 H Respiratory Rate 15 Blood Pressure 105/65 Pulse Oximetry 100 Oxygen Delivery Method Room Air MDM - URI/Sore Throat <Jaci Santos PA-C - Last Filed: 09/23/23 14:01> Lab Data Labs: Lab Results 09/23/23 Range/Units 12:37 Chlamy pneumoniae PCR Not detected (Not Detect) Adenovirus (PCR) Not detected (Not Detect) B.parapertussis DNA PCR Not detected (Not Detecte) Coronavirus OC43 (PCR) Not detected (Not Detect) Coronavirus HKU1 (PCR) Not detected (Not Detect) Coronavirus 229E (PCR) Not detected (Not Detect) SARS-CoV-2 (PCR) Not detected (Not Detecte) Coronavirus NL63 (PCR) Not detected (Not Detect) Human Metapneumovir PCR Not detected (Not Detect) Influenza Type A (PCR) Not detected (Not Detect) Influenza Type B (PCR) Not detected (Not Detect) M. pneumoniae (PCR) Not detected (Not Detect) Parainfluenza 1 (PCR) Not detected (Not Detect) Parainfluenza 2 (PCR) Not detected (Not Detect) Parainfluenza 3 (PCR) Not detected (Not Detect) Parainfluenza 4 (PCR) Not detected (Not Detect) RSV (PCR) Not detected (Not Detect) Entero/Rhino (PCR) Not detected (Not Detect) MDM Narrative Medical decision making narrative: 27-year-old female with no reported past medical history presents to the ED with 4 days of ear pain. There is some indication of otitis externa in the left ear. Will order ear lavage of the right ear to better visualize right tympanum. Will give Toradol and Tylenol for pain. Will obtain respiratory panel. Respiratory panel was negative. Ear lavage was performed on the right ear, normal right tympanum visualized as well as a normal right ear canal. It appears that patient has a viral URI and otitis externa of the left ear. Recommend patient continue antibiotic eardrops, Flonase. Patient decided to leave prior to further discussion about other modalities of treatment or prescriptions. Medical records reviewed: Yes <Susanna Powers DO - Last Filed: 09/23/23 18:44> Lab Data Labs: Lab Results 09/23/23 Range/Units 12:37 Chlamy pneumoniae PCR Not detected (Not Detect) Adenovirus (PCR) Not detected (Not Detect) B.parapertussis DNA PCR Not detected (Not Detecte) Coronavirus OC43 (PCR) Not detected (Not Detect) Coronavirus HKU1 (PCR) Not detected (Not Detect) Coronavirus 229E (PCR) Not detected (Not Detect) SARS-CoV-2 (PCR) Not detected (Not Detecte) Coronavirus NL63 (PCR) Not detected (Not Detect) Human Metapneumovir PCR Not detected (Not Detect) Influenza Type A (PCR) Not detected (Not Detect) Influenza Type B (PCR) Not detected (Not Detect) M. pneumoniae (PCR) Not detected (Not Detect) Parainfluenza 1 (PCR) Not detected (Not Detect) Parainfluenza 2 (PCR) Not detected (Not Detect) Parainfluenza 3 (PCR) Not detected (Not Detect) Parainfluenza 4 (PCR) Not detected (Not Detect) RSV (PCR) Not detected (Not Detect) Entero/Rhino (PCR) Not detected (Not Detect) Discharge Plan Departure Patient Disposition: Left Against Medical Advice Clinical Impression: Patient left before treatment completed Prescriptions: No Action vit-iron fum-folic ac [Mynatal] 1 EACH capsule 1 cap PO HS Qty: 0 ondansetron [Zofran ODT] 4 MG tablet,disintegrating 4 mg Sublingual Q6HP PRNQty: 10 0RF acetaminophen-codeine 30 MG/300 MG tablet 1 tab PO Qty: 0 cephalexin [Keflex] 500 MG capsule 500 mg PO Qty: 0 hydrocodone-acetaminophen [Vicodin] 5 MG/300 MG tablet 1 tab PO Q6HP PRNQty: 20 0RF hydrocodone-acetaminophen 5-325 mg tablet 1 tab PO Q4-6H PRN (Reason: pain) Qty: 10 0RF ciprofloxacin HCl 500 mg tablet 500 mg PO BID Qty: 20 0RF hydrocodone-acetaminophen 5-325 mg tablet 1 tab PO Q6H PRN (Reason: pain) Qty: 20 0RF Referrals: Miscellaneous,Doctor, MD [Primary Care Provider] - Stand Alone Forms: Patient Portal/API, Against Medical Advice ED Sign-out <Susanna Powers DO - Last Filed: 09/23/23 18:44> Cosign ED Attending Musa Attestation: I was immediately available in the department for consultation.
[2023-09-23] MEDS: KETOROLAC 30 MG/ML VIAL IM (11:53)
[2023-09-23] MEDS: CARBAMIDE PEROXIDE OTIC 15 ML 4 DROPS EAR-RIGHT (11:58)
[2023-09-23] MEDS: ONDANSETRON 4 MG ODT SL (12:41)
[2023-09-23 13:31] LABS: Adenovirus Not Detected (Not Detect); B. parapertussis Not Detected (Not Detecte); Bordetella pertussis Not Detected (Not Detect); Chlamydophila pneumoniae Not Detected (Not Detect); Coronavirus 229E Not Detected (Not Detect); Coronavirus HKU1 Not Detected (Not Detect); Coronavirus NL 63 Not Detected (Not Detect); Coronavirus OC43 Not Detected (Not Detect); Human Metapneumovirus Not Detected (Not Detect); Human Rhinovirus/Enterovirus Not Detected (Not Detect); Influenza A Not Detected (Not Detect); Influenza B Not Detected (Not Detect); Mycoplasma pneumoniae Not Detected (Not Detect); Parainfluenza Virus 1 Not Detected (Not Detect); Parainfluenza Virus 2 Not Detected (Not Detect); Parainfluenza Virus 3 Not Detected (Not Detect); Parainfluenza Virus 4 Not Detected (Not Detect); Respiratory Syncytial Virus Not Detected (Not Detect); SARS- CoV-2 Not Detected (Not Detecte)
== END 2023-09-23 13:53 | disposition left against medical advice (07) ==
PROVIDERS: Emergency Provider Student in an Organized Health Care Education/Training Program; Family Provider Nurse Practitioner
DX: H92.03 Otalgia, bilateral (principal); Z20.822 Contact with and (suspected) exposure to COVID-19
CPT/HCPCS: 87633; 96372; 99283; 99284; J1885